=== PATIENT | male | born 1995 | race Caucasian/White ===

== ENCOUNTER 2017-03-23 16:48 | Emergency (ER) | payer SELFPAY ==
[2017-03-23] MEDS ORDERED: Tetan/Diph/Pertus SYR(Tdap)* 0.5 ML SYR(BOOSTRIX) use SYR IM ONE (17:19)
--- NOTE | 2017-03-23 17:23 | UC ---
Laceration HPI - HPI Summary HPI Summary: The patient comes in today for: 1. Laceration right eyebrow: Onset: 30 minutes ago. Palliative/provocative: Touching laceration makes it worse. Quality: Soreness. Region: Right eyebrow. Severity:12/23 Time: Constant. Associated symptoms: Event: He fell off a truck hitting his head on "some sort of metal on the bottom of the trailer." No LOC. No headache, no nausea. No neck pain. No photophobia, no phonophobia. No disorientation or confusion. Tetanus vaccine: Unknown. Vision changes: None. * - History Of Current Complaint Stated Complaint: RIGHT EYE LACERATION Time Seen by Provider: 03/23/17 17:05 Hx Obtained From: Patient - Allergies/Home Medications Allergies/Adverse Reactions: Allergies Allergy/AdvReac Type Severity Reaction Status Date / Time Bee Venom Allergy Hives Verified 03/23/17 17:41 Home Medications: Home Medications NK [No Home Medications Reported] 03/23/17 [History Confirmed 03/23/17] PMH/Surg Hx/FS Hx/Imm Hx Previously Healthy: Yes Endocrine History Of: Denies: Diabetes, Thyroid Disease, Hyperthyroidism, Hypothyroidism, Dyslipidemia Cardiovascular History Of: Denies: Cardiac Disorders, Hypertension, Pacemaker/ICD, Myocardial Infarction , Congestive Heart Failure, Atrial Fibrillation, Deep Vein Thrombosis, Bleeding Disorders Respiratory History Of: Denies: COPD, Asthma, Bronchitis, Pneumonia, Pulmonary Embolism GI/ History Of: Denies: Gastroesophageal Reflux, Ulcer, Gastrointestinal Bleed, Gall Bladder Disease, Kidney Stones, Diverticulitis, Renal Disease, Urosepsis Neurological History Of: Denies: TIA, CVA, Dementia, Seizures, Migraine Psychological History Of: Denies: Anxiety, Depression, Bipolar Disorder, Schizophrenia, Post Traumatic Stress Disorder Cancer History Of: Denies: Lung Cancer, Colorectal Cancer, Breast Cancer, Prostate Cancer, Cervical Cancer Other History Of: Anticoagulant Therapy Negative For: HIV, Hepatitis B, Hepatitis C - Surgical History Surgical History: None - Family History Known Family History: Positive: Hypertension Negative: Cardiac Disease - Social History Occupation: Employed Full-time Alcohol Use: Rare Substance Use Type: Marijuana Smoking Status (MU): Heavy Every Day Tobacco Smoker Type: Cigarettes Amount Used/How Often: 1/2 PPD Length of Time of Smoking/Using Tobacco: 1.5 YRS Review of Systems Constitutional: Negative Skin: Negative Eyes: Negative ENT: Negative Respiratory: Negative Cardiovascular: Negative Gastrointestinal: Negative Genitourinary: Negative All Other Systems Reviewed And Are Negative: Yes Physical Exam Triage Information Reviewed: Yes Appearance: Well-Appearing, No Pain Distress, Well-Nourished Vital Signs Reviewed: Yes Eyes: Positive: Conjunctiva Clear. Negative: Discharge ENT: Positive: Normal ENT inspection. Negative: Pharyngeal erythema, Nasal congestion, Nasal drainage, TM bulging, TM dull, TM red, Tonsillar swelling, Tonsillar exudate Dental: Negative: Gross Decay/Caries @, Dental Fracture @ Neck: Positive: Supple, Nontender, No Lymphadenopathy. Negative: Nuchal Rigidity Respiratory: Positive: Chest non-tender, Lungs clear, No respiratory distress, No accessory muscle use. Negative: Crackles, Wheezing Cardiovascular: Positive: RRR, No Murmur Abdomen Description: Positive: Nontender, No Organomegaly, Soft, Distended, Guarding Musculoskeletal: Positive: Strength Intact, ROM Intact, No Edema Neurological: Positive: Alert, Muscle Tone Normal Psychological: Positive: Age Appropriate Behavior, Decreased Age Appropriate Behavior Skin: Positive: rashes, breakdown, Other - Laceration of the right eyebrow in a "V" formation--2 cm. Laceration Repair - Laceration Repair 1 Description: Irregular Laceration Size After Repair: Length (cm) - 2, Width (mm) - 7, Depth (mm) - 5 Modified For Repair: Yes Anesthesia Used: 2.0% Lido Additive Used (in ml): Epi Cleansing Completed Via Routine Prep: Yes Irrigation With Pressure Irrigation Device: Yes Closure Material: Sutures Closure Method: Single Layer Suture Of: Skin Suture Type: Prolene - Eleven 6-0 prolene Laceration Course/Dx - Differential Dx - Laceration/Wound Differental Diagnoses: Puncture Wound Provider Diagnoses: Laceration of the right eyebrow Discharge - Discharge Plan Condition: Stable Disposition: HOME Patient Education Materials: Laceration (ED), Care For Your Stitches (ED) Referrals: Amna Mejia [Primary Care Provider] - 1 Week (Please see us or your primary care provider (if your doctor removes sutures) in 7 days for possible removal of stitches. ) Additional Instructions: Inspect the area daily watching for: 1. Increased redness 2. Increased swelling 3. Increased pain 4. Increased discharge. If you see these things, please be seen again.
[2017-03-23] MEDS ORDERED: Lidocaine 2% W/EPI 1:100,000* 20 ML MDV INJ ONE (17:35)
[2017-03-23 18:44] VITALS: BP 114/68
== END 2017-03-23 19:08 | disposition home or self-care (01) ==
LOC: UCCORT 16:48
DX: S01.111A Laceration without foreign body of right eyelid and periocular area, initial encounter (principal); W17.89XA Other fall from one level to another, initial encounter; Y93.9 Activity, unspecified; Y99.9 Unspecified external cause status; F12.10 Cannabis abuse, uncomplicated; F17.219 Nicotine dependence, cigarettes, with unspecified nicotine-induced disorders
CPT/HCPCS: 12011; 90471; 90715; 99212; G0463

== ENCOUNTER 2017-03-30 09:43 | Emergency (ER) | payer SELFPAY ==
[2017-03-30 10:08] VITALS: BP 105/65
--- NOTE | 2017-03-30 10:30 | UC ---
HPI Wound/Suture Re-check - HPI Summary HPI Summary: SUTURES PLACED ABOVE RIGHT EYE ONH 03/23/17. WOULD LIKE THEM REMOVED - History Of Current Complaint Chief Complaint: UCLaceration Stated Complaint: SUTURE REMOVAL Time Seen by Provider: 03/30/17 10:11 Hx Obtained From: Patient Onset/Duration: Sudden Onset, Lasting Days, Still Present Severity: Mild - Allergies/Home Medications Allergies/Adverse Reactions: Allergies Allergy/AdvReac Type Severity Reaction Status Date / Time Bee Venom Allergy Hives Verified 03/30/17 09:56 PMH/Surg Hx/FS Hx/Imm Hx Previously Healthy: Yes Endocrine History Of: Denies: Diabetes, Thyroid Disease, Hyperthyroidism, Hypothyroidism, Dyslipidemia Cardiovascular History Of: Denies: Cardiac Disorders, Hypertension, Pacemaker/ICD, Myocardial Infarction , Congestive Heart Failure, Atrial Fibrillation, Deep Vein Thrombosis, Bleeding Disorders Respiratory History Of: Denies: COPD, Asthma, Bronchitis, Pneumonia, Pulmonary Embolism GI/ History Of: Denies: Gastroesophageal Reflux, Ulcer, Gastrointestinal Bleed, Gall Bladder Disease, Kidney Stones, Diverticulitis, Renal Disease, Urosepsis Neurological History Of: Denies: TIA, CVA, Dementia, Seizures, Migraine Psychological History Of: Denies: Anxiety, Depression, Bipolar Disorder, Schizophrenia, Post Traumatic Stress Disorder Cancer History Of: Denies: Lung Cancer, Colorectal Cancer, Breast Cancer, Prostate Cancer, Cervical Cancer Other History Of: Anticoagulant Therapy Negative For: HIV, Hepatitis B, Hepatitis C - Surgical History Surgical History: None - Family History Known Family History: Positive: Hypertension Negative: Cardiac Disease - Social History Occupation: Employed Full-time Lives: With Family Alcohol Use: Occasionally Substance Use Type: Marijuana Smoking Status (MU): Heavy Every Day Tobacco Smoker Type: Cigarettes Amount Used/How Often: 1 PPD Length of Time of Smoking/Using Tobacco: Since Age 14 Have You Smoked in the Last Year: Yes Household Exposure Type: Cigarettes Cessation Counseling: Patient Advised to Stop - Immunization History Most Recent Tetanus Shot: 03/23/17 Review of Systems Constitutional: Negative Skin: Other - #13 SUTURES ABOVE RIGHT EYE Eyes: Negative ENT: Negative Respiratory: Negative Cardiovascular: Negative Gastrointestinal: Negative Genitourinary: Negative Motor: Negative Neurovascular: Negative Musculoskeletal: Negative Neurological: Negative Psychological: Negative All Other Systems Reviewed And Are Negative: Yes Physical Exam Triage Information Reviewed: Yes Appearance: Well-Appearing, No Pain Distress, Well-Nourished Vital Signs: Initial Vital Signs Temp 97.8 F 03/30/17 09:54 Pulse 78 03/30/17 09:54 Resp 16 03/30/17 09:54 BP 105/65 03/30/17 09:54 Pulse Ox 99 03/30/17 09:54 Vital Signs Reviewed: Yes Eye Exam: Normal ENT Exam: Normal ENT: Positive: Normal ENT inspection, Hearing grossly normal, TMs normal Dental Exam: Normal Neck exam: Normal Neck: Positive: Supple, Nontender Respiratory Exam: Normal Respiratory: Positive: Chest non-tender, Lungs clear, Normal breath sounds, No respiratory distress, No accessory muscle use Cardiovascular Exam: Normal Cardiovascular: Positive: RRR, No Murmur, Pulses Normal Abdominal Exam: Normal Abdomen Description: Positive: Nontender, No Organomegaly Musculoskeletal Exam: Normal Neurological Exam: Normal Psychological Exam: Normal Skin: Positive: Other - #13 SUTURES ABOVE RIGHT EYE Course/Dx - Differential Dx - Laceration/Wound Differential Diagnoses: Suture Removal Provider Diagnoses: SUTURE REMOVAL #13 SUTURES RIGHT EYEBROW Discharge - Discharge Plan Condition: Stable Disposition: HOME Patient Education Materials: Stitches Removal (ED) Referrals: [facility] [place] [facility] REFERR[facility] [Outside] No Primary Care Phys,NOPCP [Primary Care Provider] - Images Head: 1 - #13 SUTURES ON RIGHT EYEBROW
== END 2017-03-30 10:29 | disposition home or self-care (01) ==
LOC: UCCORT 09:43
DX: S01.111D Laceration without foreign body of right eyelid and periocular area, subsequent encounter (principal); X58.XXXD Exposure to other specified factors, subsequent encounter; Y92.9 Unspecified place or not applicable; Z79.01 Long term (current) use of anticoagulants; Z91.030 Bee allergy status; F17.210 Nicotine dependence, cigarettes, uncomplicated

== ENCOUNTER 2019-01-31 14:47 | Emergency (ER) | payer BC ==
[2019-01-31 15:04] VITALS: BP 130/70
--- NOTE | 2019-01-31 15:23 | ED ---
Skin Complaint - HPI Summary HPI Summary: 23 yr old with insect bites to the left forearm. Onset noon yesterday. did not hurt. Doesn't know what bit him. He has increased redness and some swelling around the bites. He has no other complaints. no other symptoms. - History of Current Complaint Chief Complaint: UCSkin Time Seen by Provider: 01/31/19 15:06 Stated Complaint: SKIN CONCERN Pain Intensity: 5 - Allergy/Home Medications Allergies/Adverse Reactions: Allergies Allergy/AdvReac Type Severity Reaction Status Date / Time No Known Allergies Allergy Verified 01/31/19 15:02 Home Medications: Home Medications NK [No Home Medications Reported] 01/31/19 [History Confirmed 01/31/19] PMH/Surg Hx/FS Hx/Imm Hx Endocrine/Hematology History: Reports: Hx Anticoagulant Therapy Denies: Hx Diabetes, Hx Thyroid Disease Cardiovascular History: Denies: Hx Congestive Heart Failure, Hx Deep Vein Thrombosis, Hx Hypertension , Hx Myocardial Infarction, Hx Pacemaker/ICD Respiratory History: Denies: Hx Asthma, Hx Chronic Obstructive Pulmonary Disease (COPD), Hx Lung Cancer, Hx Pneumonia, Hx Pulmonary Embolism GI History: Denies: Hx Gall Bladder Disease, Hx Gastrointestinal Bleed, Hx Ulcer, Hx Urosepsis History: Denies: Hx Kidney Stones, Hx Renal Disease Neurological History: Denies: Hx Dementia, Hx Migraine, Hx Seizures, Hx Transient Ischemic Attacks (TIA) Psychiatric History: Denies: Hx Anxiety, Hx Depression, Hx Schizophrenia, Hx Bipolar Disorder Infectious Disease History: No Infectious Disease History: Denies: Traveled Outside the [place] in Last 30 Days - Family History Known Family History: Positive: Hypertension Negative: Cardiac Disease - Social History Occupation: Employed Full-time Lives: With Family Alcohol Use: Rare Substance Use Type: Reports: None Smoking Status (MU): Heavy Every Day Tobacco Smoker Type: Cigarettes Amount Used/How Often: 1/2 PPD Length of Time of Smoking/Using Tobacco: 1.5 YRS Have You Smoked in the Last Year: Yes Review of Systems Constitutional: Negative Positive: Other - bites to the left forearm skin All Other Systems Reviewed And Are Negative: Yes Physical Exam Triage Information Reviewed: Yes Vital Signs On Initial Exam: Initial Vitals Temp Pulse Resp BP Pulse Ox 98.6 F 99 16 130/70 98 01/31/19 15:01 01/31/19 15:01 01/31/19 15:01 01/31/19 15:01 01/31/19 15:01 Vital Signs Reviewed: Yes Appearance: Positive: Well-Appearing, No Pain Distress Skin: Positive: Other - bites insect to left forearm with mild cellulitis. Head/Face: Positive: Normal Head/Face Inspection Eyes: Positive: EOMI ENT: Positive: Normal ENT inspection Neck: Positive: Nontender Respiratory/Lung Sounds: Positive: Clear to Auscultation, Breath Sounds Present Cardiovascular: Positive: RRR. Negative: Murmur Abdomen Description: Negative: Distended Musculoskeletal: Positive: Strength/ROM Intact Neurological: Positive: Sensory/Motor Intact, Alert, Oriented to Person Place, Time, CN Intact II-III Psychiatric: Positive: Normal Diagnostics - Vital Signs Vital Signs Temp Pulse Resp BP Pulse Ox 01/31/19 15:01 98.6 F 99 16 130/70 98 - Laboratory Lab Statement: Any lab studies that have been ordered have been reviewed, and results considered in the medical decision making process. Course/Dx - Course Course Of Treatment: 23 yr old with insect bites and mild cellulitis. Rx with Keflex. - Diagnoses Provider Diagnoses: Cellulitis of forearm, left, Insect bites, Hypertension Discharge - Sign-Out/Discharge Documenting (check all that apply): Patient Departure All imaging exams completed and their final reports reviewed: No Studies - Discharge Plan Condition: Good Disposition: HOME Patient Education Materials: Insect Bite or Sting (ED), Cellulitis (ED) Referrals: No Primary Care Phys,NOPCP [Primary Care Provider] - [facility] [place] [place] PHYSICIAN REFERRAL [Outside] - Billing Disposition and Condition Condition: GOOD Disposition: Home
== END 2019-01-31 15:30 | disposition home or self-care (01) ==
LOC: UCCORT 14:47
DX: S50.862A Insect bite (nonvenomous) of left forearm, initial encounter (principal); L03.114 Cellulitis of left upper limb; I10 Essential (primary) hypertension; F17.210 Nicotine dependence, cigarettes, uncomplicated; W57.XXXA Bitten or stung by nonvenomous insect and other nonvenomous arthropods, initial encounter; Y92.9 Unspecified place or not applicable
CPT/HCPCS: 99212; G0463

== ENCOUNTER 2019-07-19 20:52 | Emergency (ER) | payer BC ==
[2019-07-19 21:06] VITALS: BP 124/79
--- NOTE | 2019-07-19 21:26 | UC ---
Complaint Male HPI - HPI Summary HPI Summary: 44-year-old male comes in for evaluation of sexually transmitted diseases. Patient reports that he was informed today from a sexual partner that she recommended he get checked. He believes she is mentioned herpes. He is asymptomatic no burning with urination no lesions no prior history of herpes. No fevers or chills. No penile or testicular scrotal pain. - History of Current Complaint Chief Complaint: UCSTDScreening Stated Complaint: PERSONAL Time Seen by Provider: 07/19/19 21:04 Pain Intensity: 0 - Allergies/Home Medications Allergies/Adverse Reactions: Allergies Allergy/AdvReac Type Severity Reaction Status Date / Time bee venom protein (honey bee) Allergy Hives Verified 07/19/19 21:02 Home Medications: Home Medications NK [No Home Medications Reported] 07/19/19 [History Confirmed 07/19/19] PMH/Surg Hx/FS Hx/Imm Hx Previously Healthy: Yes Other History Of: Anticoagulant Therapy Negative For: HIV, Hepatitis B, Hepatitis C - Surgical History Surgical History: None - Family History Known Family History: Positive: Hypertension Negative: Cardiac Disease - Social History Alcohol Use: Rare Substance Use Type: None Smoking Status (MU): Heavy Every Day Tobacco Smoker Type: Cigarettes Amount Used/How Often: 1/2 PPD Length of Time of Smoking/Using Tobacco: Since Age 19 Have You Smoked in the Last Year: Yes Household Exposure Type: Cigarettes - Immunization History Most Recent Tetanus Shot: 03/23/17 Review of Systems All Other Systems Reviewed And Are Negative: Yes Constitutional: Positive: Negative Skin: Positive: Negative Eyes: Positive: Negative ENT: Positive: Negative Respiratory: Positive: Negative Cardiovascular: Positive: Negative Gastrointestinal: Positive: Negative Genitourinary: Positive: Negative Motor: Positive: Negative Neurovascular: Positive: Negative Musculoskeletal: Positive: Negative Neurological: Positive: Negative Psychological: Positive: Negative Is Patient Immunocompromised?: No Physical Exam Triage Information Reviewed: Yes Appearance: Well-Appearing, No Pain Distress, Well-Nourished Vital Signs: Initial Vital Signs Temp 99 F 07/19/19 21:02 Pulse 76 07/19/19 21:02 Resp 16 07/19/19 21:02 BP 124/79 07/19/19 21:02 Pulse Ox 98 07/19/19 21:02 Vital Signs Reviewed: Yes Eye Exam: Normal Eyes: Positive: Conjunctiva Clear Neck: Positive: Supple Respiratory: Positive: Lungs clear, Normal breath sounds, No respiratory distress Cardiovascular: Positive: RRR Abdomen Description: Positive: Nontender, Soft Bowel Sounds: Positive: Present Male Genital Exam: Positive: Normal Genitalia, Other - Normal genital exam no lesions. Testicles nontender to palpation nor abnormalities noted on examination. Musculoskeletal: Positive: Strength Intact, ROM Intact Neurological: Positive: Alert, Muscle Tone Normal Psychological: Positive: Age Appropriate Behavior Skin Exam: Normal Complaint Male Course/Dx - Course Course Of Treatment: We are checking gonorrhea and chlamydia through the urine. I discussed that interpreted results of blood work for herpes can be difficult as people can have had ear infections for a long time and been asymptomatic. I am doing a herpes IgM and IgG screen. Also doing an HIV screen. At this time the patient' s asymptomatic the potential concern is herpes although we did screen for other STI's therefore at this time we did not treat empirically for STI's. Patient to follow-up his primary care doctor or [facility] to return here with any questions or concerns. - Differential Dx/Diagnosis Provider Diagnosis: Exposure to sexually transmitted disease (STD) Discharge ED - Sign-Out/Discharge Documenting (check all that apply): Patient Departure All imaging exams completed and their final reports reviewed: No Studies - Discharge Plan Condition: Stable Disposition: HOME Patient Education Materials: Genital Herpes Simplex (ED), Sexually Transmitted Diseases (ED) Referrals: [facility] [place] [facility] REFERR[facility] [Outside] [facility] [Outside] Additional Instructions: FOLLOW UP WITH YOUR PRIMARY CARE DOCTOR OR [facility] IF NEEDED. GET REEVALUATED SOONER IF WORSE OR ANY QUESTIONS OR CONCERNS. - Billing Disposition and Condition Condition: STABLE Disposition: Home
[2019-07-20 15:33] LABS: HIV 4th Generation Nonreactive (Nonreactive)
--- NOTE | 2019-07-21 07:16 | UC ---
- Progress Note Progress Note: Please notify patient his HIV test was negative. Course/Dx - Diagnoses Provider Diagnoses: Exposure to sexually transmitted disease (STD) Discharge ED - Sign-Out/Discharge Documenting (check all that apply): Post-Discharge Follow Up All imaging exams completed and their final reports reviewed: No Studies - Discharge Plan Condition: Stable Disposition: HOME Patient Education Materials: Genital Herpes Simplex (ED), Sexually Transmitted Diseases (ED) Referrals: [facility] [place] [facility]FERR[facility] [Outside] [facility] [Outside] Additional Instructions: FOLLOW UP WITH YOUR PRIMARY CARE DOCTOR OR [facility] IF NEEDED. GET REEVALUATED SOONER IF WORSE OR ANY QUESTIONS OR CONCERNS. - Billing Disposition and Condition Condition: STABLE Disposition: Home
[2019-07-22 13:44] LABS: Chlamydia trachomatis NAA Negative (Negative); Neisseria gonorrhoeae (GC) NAA Negative (Negative)
[2019-07-23 10:55] LABS: Herpes Simplex Virus I IgG AB Negative (Negative); Herpes Simplex Virus II IgG AB Negative (Negative)
--- NOTE | 2019-07-24 07:26 | UC ---
- Progress Note Progress Note: Please advise that he tests NEGATIVE for antiboidies for antibodies to herpes virus--no evidence of recent infection. Course/Dx - Diagnoses Provider Diagnoses: Exposure to sexually transmitted disease (STD) Discharge ED - Sign-Out/Discharge Documenting (check all that apply): Patient Departure All imaging exams completed and their final reports reviewed: No Studies - Discharge Plan Condition: Stable Disposition: HOME Patient Education Materials: Genital Herpes Simplex (ED), Sexually Transmitted Diseases (ED) [place]: [facility] [place]] [facility] [Outside] Additional Instructions: FOLLOW UP WITH YOUR PRIMARY CARE DOCTOR OR [facility] IF NEEDED. GET REEVALUATED SOONER IF WORSE OR ANY QUESTIONS OR CONCERNS. - Billing Disposition and Condition Condition: STABLE Disposition: Home
== END 2019-07-19 21:33 | disposition home or self-care (01) ==
LOC: UCCORT 20:52
DX: Z20.2 Contact with and (suspected) exposure to infections with a predominantly sexual mode of transmission (principal); Z91.030 Bee allergy status; Z79.01 Long term (current) use of anticoagulants; F17.210 Nicotine dependence, cigarettes, uncomplicated
CPT/HCPCS: 36415; 81003; 86694; 86695; 86696; 87389; 87491; 87591; 99211; G0463